=== PATIENT | male | born 1980 | race Caucasian/White ===

== ENCOUNTER 2019-11-27 16:18 | Emergency (ER) | payer MEDICAID, SELFPAY ==
[2019-11-27 16:25] VITALS: BP 163/94; PULSE 98; RESP 20; TEMP 36.7; O2SAT 96
--- NOTE | 2019-11-27 16:30 | DI.RAD_ITS ---
EXAM: XR HAND RT COMPLETE CLINICAL HISTORY: thumb, index pain after injury TECHNIQUE: 2D digital imaging was performed. COMPARISON: No exams were available for comparison FINDINGS: There is lateral subluxation of the 1st metacarpal with respect to the trapezium. No fracture is yuni ntified. There is negative ulnar variance. There are mild degenerative changes of interphalangeal j oint of thumb. Smoothly marginated bony densities noted on the lateral view dorsally consistent with old trauma. IMPRESSION: Lateral subluxation of the 1st metacarpal consistent with ligamentous injury.
--- NOTE | 2019-11-27 16:40 | ED.GENADUL_ITS ---
Discharge Plan Disposition Patient Disposition: HOME Condition: Stable Discharge Details Clinical Impression: CMC (carpometacarpal joint) sprains Primary Care Provider: None,None ED Provider: Donn Naranjo Home Meds and New Rx's Prescriptions: Continued trazodone 100 MG tablet 200 - 300 mg PO HS PRNRF: 0 sertraline 100 MG tablet 150 mg PO DAILY RF: 0 Vyvanse 30 MG capsule 50 mg PO DAILY RF: 0 ibuprofen 800 MG tablet 800 mg PO Q8H PRN (Reason: Pain) Qty: 15 RF: 0 acetaminophen 500 mg Tablet 1,000 mg PO PRN PRNRF: 0 Discharge Instructions Additional Instructions: We will place you on the orthopedic follow-up list for evaluation of mild subluxation of the first carpal metacarpal joint. Call the office at [phone] for an appointment time. May remove splint for bathing, otherwise leave the splint with thumb spica in place until seen by orthopedics. Apply ice to area to reduce discomfort. May use Tylenol and/or ibuprofen as needed for pain. Return to the ER if you develop cold/blue/numbness of the fingertips or any other acute concerns. Medical Decision Making 39-year-old male presents with right hand pain after the hand was caught in b etween the sides of an extension ladder and a rung. It was quickly removed. Patient took [id number] analgesic, placed ice and presented to the ER. X-ray obtained which does not reveal underlying bony fracture. There is question of right first carpometacarpal joint subluxation. Patient was placed in thumb spica, I will refer him to orthopedic clinic in follow-up. He understands outpatient care and follow-up. HPI General Mode of arrival: ambulatory . Date/Time Provider Initiated Documentation: 11/27/19 16:20 . Limitations to Documentation: no limitations . Information obtained by: patient . History of Present Illness 39 year old M presents to the emergency department with the chief complaint of Right hand injury, described as moderate, Quality is described as dull and constant, and is localized to the right and upper extremity. Patient reports no radiation. Patient started experiencing this hour(s) and it has been constant. No relieving factors improve symptom(s), No exacerbating factors reported . Patient notes denies weakness. Patient did receive the following treatments prior to arrival, NSAID Related Data Home Medications Medication Instructions Recorded Confirmed Vyvanse 50 mg PO DAILY 07/31/13 11/27/19 sertraline 150 mg PO DAILY 07/31/13 11/27/19 trazodone 200 - 300 mg PO HS PRN 07/31/13 11/27/19 ibuprofen 800 mg PO Q8H PRN #15 tablet 03/24/17 11/27/19 acetaminophen 1,000 mg PO PRN PRN 11/27/19 11/27/19 Previous Rx's Medication Instructions Recorded ibuprofen 800 mg PO Q8H PRN #15 tablet 03/24/17 Allergies Allergy/AdvReac Type Severity Reaction Status Date / Time No Known Allergies Allergy Unverified 03/26/17 07:47 General Stated Complaint: Orthopedic TREVER: 4 Review of Systems Narrative: No motor weakness. Pain primarily over the thumb and index. No other injury. [facility] Social History Smoking/Tobacco Use Status: Current every day Tobacco Type: cigarettes Alcohol Intake: never Drug use: Never Substance use type: does not use Do you feel safe at home: Yes Do you feel safe in your relationship?: Yes Exam Narrative Exam Narrative: GEN: awake, alert, oriented 3. Pleasant, well groomed, interactive. HEAD: Normocephalic, atraumatic CHEST/RESP: No respiratory distress EXT: Full ROM, tender overlying proximal thumb -R on the dorsum as well as overlying first metacarpal -R on the dorsum. Patient able to perform all cardinal movements, sensation is intact, capillary refill less than 2 seconds. Neuro: Grossly normal neurologic exam, conversant, interactive. Psych: Speech fluent, thoughts congruent, affect normal Course Vital Signs Vital signs: Vital Signs Temperature 36.7 C 11/27/19 16:25 Pulse 98 H 11/27/19 16:25 Respiratory Rate 11/27/19 16:25 Blood Pressure 163/94 H 11/27/19 16:25 Pulse Oximetry 96 11/27/19 16:25 Temperature 36.7 C 11/27/19 16:25 Temperature Source Skin 11/27/19 16:25 Pulse 98 H 11/27/19 16:25 Respiratory Rate 20 11/27/19 16:25 Respiratory Effort Non-Labored 11/27/19 16:28 Blood Pressure 163/94 H 11/27/19 16:25 Blood Pressure Position Sitting 11/27/19 16:25 Pulse Oximetry 96 11/27/19 16:25 Oxygen Delivery Method Room Air 11/27/19 16:25 Oxygen Flow Rate 0 11/27/19 16:25 Pain Level 8 11/27/19 16:25
--- NOTE | 2019-11-27 17:03 | DI.VRAD_ITS ---
PROCEDURE INFORMATION: Exam: XR Right Hand Exam date and time: 11/27/2019 4:45 PM Age: 39 years old Clinical indication: Other: Thumb, index pain after injury, ; additional info: Pain in RT ip joint, caught in ladder upon fall TECHNIQUE: Imaging protocol: XR Right hand. Views: 3 or more views. COMPARISON: No relevant prior studies available. FINDINGS: Bones/joints: There is a negative ulnar variance. The lunate bone is normal There is a mild subluxation at the 1st carpal metacarpal joint No acute fractures . Soft tissues: Normal. IMPRESSION: 1. The 1st carpal metacarpal joint subluxation. 2. No acute fracture. 3. A negative ulnar variance. The lunate is normal. Dictated and Authenticated by: Sharad Cardoza MD. Ordering:VITALIY Pop MD
== END 2019-11-27 17:28 | disposition home or self-care (01) ==
PROVIDERS: Emergency Provider Emergency Medicine
DX: S67.01XA Crushing injury of right thumb, initial encounter (principal); S63.641A Sprain of metacarpophalangeal joint of right thumb, initial encounter; W23.0XXA Caught, crushed, jammed, or pinched between moving objects, initial encounter
CPT/HCPCS: 99283; 73130; L3807

== ENCOUNTER 2020-07-10 12:59 | Emergency (ER) | payer MEDICAID, SELFPAY ==
[2020-07-10 13:04] VITALS: BP 155/96; PULSE 98; RESP 16; TEMP 36.8; O2SAT 99
--- NOTE | 2020-07-10 13:15 | DI.RAD_ITS ---
Exam(s) XR TOE RT GREAT EXAM: XR TOE RT GREAT CLINICAL HISTORY: pain, swelling, minor trauma, prior remote sx TECHNIQUE: COMPARISON: CR RIGHT FOOT LIMITED from 04/14/2013 FINDINGS: Three views were obtained. There is deformity of the head of the proximal phalanx of the great toe, no change from prior radiographs April 2013. There is no evidence of acute fracture or dislocatio n. IMPRESSION: RADIATION DOSE DELIVERED: Total DLP
--- NOTE | 2020-07-10 13:19 | ED.GENADUL_ITS ---
Discharge Plan Disposition Patient Disposition: HOME Condition: Stable Discharge Details Clinical Impression: Cellulitis of great toe, right Primary Care Provider: None,None ED Provider: Gold Saavedra Home Meds and New Rx's Prescriptions: New cephalexin 500 mg tablet 500 mg PO QID Qty: 27 RF: 0 Continued trazodone 100 MG tablet 200 - 300 mg PO HS PRNRF: 0 sertraline 100 MG tablet 150 mg PO DAILY RF: 0 Vyvanse 30 MG capsule 50 mg PO DAILY RF: 0 ibuprofen 800 MG tablet 800 mg PO Q8H PRN (Reason: Pain) Qty: 15 RF: 0 acetaminophen 500 mg Tablet 1,000 mg PO PRN PRNRF: 0 Discharge Instructions Instructions: Cellulitis (ED) Additional Instructions: Please follow-up with Dr. Wright on . Call today to schedule time of appointment. Please take antibiotic as prescribed Please take ibuprofen over the counter. Take 600mg by mouth every 6 hours as needed for pain. Please contact your primary care physician to arrange follow-up. Return to the ER for any worsening or new concerning symptoms. Stand Alone Forms: Work Release Referrals: Guy Wright DPM [[facility] STAFF PHYSICIAN] - Discharge Data Discharge Date/Time-TO BE ENTERED AT DEPARTURE: 07/10/20 14:32 Medical Decision Making 40-year-old male has history of remote reconstructive surgery to his right great toe here 2 days after stubbing his right great toe with pain, erythema and tenderness of the right great toe. Concern for likely cellulitis. Will initiate treatment with Keflex. X-ray of the toe was reviewed and interpreted by radiology: There is deformity of the head of the proximal phalanx of the great toe, no change from prior radiographs April 2013. There is no evidence of acute fracture or dislocation. Considered initial onset gouty arthritis. Patient does not have history of alcohol use. Will continue keflex, provide orthopedic postoperative shoe for comfort and support, and refer to podiatry for close followup reassess. I called and spoke with Dr. Wright, hospital tray service worker, discussed ED presentation and course, he agrees with treatment plan and will see the patient in follow-up in 2 days. HPI General Mode of arrival: ambulatory . Date/Time Provider Initiated Documentation: 07/10/20 13:17 . Limitations to Documentation: no limitations . Information obtained by: patient . HPI Narrative: 40-year-old male presents with chief complaint of right great toe pain. Patient notes 2 days he stubbed his toe, states he caught his toenail on coffee table. Pain is moderate and worse with ambulation and on palpation. He has associated swelling and redness of the toe. He has no associated fever. No other injury. Patient does note remote history 20+ years ago of having reconstructive surgery to his great toe. He notes chronic deformity of the toe. Related Data Home Medications Medication Instructions Recorded Confirmed Vyvanse 50 mg PO DAILY 07/31/13 07/10/20 sertraline 150 mg PO DAILY 07/31/13 07/10/20 trazodone 200 - 300 mg PO HS PRN 07/31/13 07/10/20 ibuprofen 800 mg PO Q8H PRN #15 tab 03/24/17 07/10/20 acetaminophen 1,000 mg PO PRN PRN 11/27/19 07/10/20 cephalexin 500 mg PO QID #27 tab 07/10/20 Previous Rx's Medication Instructions Recorded ibuprofen 800 mg PO Q8H PRN #15 tab 03/24/17 cephalexin 500 mg PO QID #27 tab 07/10/20 Allergies Allergy/AdvReac Type Severity Reaction Status Date / Time clindamycin Allergy Severe Anaphylaxis Unverified 07/10/20 14:20 General Stated Complaint: Orthopedic TREVER: 4 Review of Systems Constitutional Constitutional: Denies fever(s) Musculoskeletal Musculoskeletal: Reports as per [facility] Medical History Smoker Social History Smoking/Tobacco Use Status: Current every day Tobacco Type: cigarettes Smoking risk assessment performed?: Yes Alcohol Intake: never Drug use: Never Substance use type: does not use Do you feel safe at home: Yes Do you feel safe in your relationship?: Yes Exam Const General: cooperative Nutritional Appearance: average body habitus Orientation: alert Cardio Rate: regular rate Rhythm: regular rhythm Pulses: dorsalis pedis present on the right 2+ Extrem Right lower extremity: foot (Great toe with swelling, erythema and tenderness. No fluctuance. ) Details: tendon exam Details: active flexion normal; no crepitus Course Vital Signs Vital signs: Vital Signs Temperature 36.8 C 07/10/20 13:04 Pulse 98 H 07/10/20 13:04 Respiratory Rate 16 07/10/20 13:04 Blood Pressure 155/96 H 07/10/20 13:04 Pulse Oximetry 99 07/10/20 13:04 Temperature 36.8 C 07/10/20 13:04 Temperature Source Skin 07/10/20 13:04 Pulse 98 H 07/10/20 13:04 Respiratory Rate 16 07/10/20 13:04 Respiratory Effort Non-Labored 07/10/20 13:04 Blood Pressure 155/96 H 07/10/20 13:04 Blood Pressure Position Sitting 07/10/20 13:04 Pulse Oximetry 99 07/10/20 13:04 Oxygen Delivery Method Room Air 07/10/20 13:04 Oxygen Flow Rate 0 07/10/20 13:04 Pain Level 9 07/10/20 13:04
[2020-07-10] MEDS: Cephalexin 500 MG CAP PO (14:25)
== END 2020-07-10 14:32 | disposition home or self-care (01) ==
PROVIDERS: Emergency Provider Student in an Organized Health Care Education/Training Program
DX: L03.031 Cellulitis of right toe (principal)
CPT/HCPCS: 36416; 82962; 99283; 73660; 99284

== ENCOUNTER 2021-04-25 14:13 | Emergency (ER) | payer OTHER, MEDICAID, SELFPAY ==
[2021-04-25 14:21] VITALS: BP 145/95; PULSE 77; RESP 16; TEMP 36.9; O2SAT 100
--- NOTE | 2021-04-25 14:36 | ED.GENADUL_ITS ---
Discharge Plan Disposition Patient Disposition: HOME Condition: Good Discharge Details Clinical Impression: COVID-19 Primary Care Provider: None,None ED Provider: Jessica Drew Home Meds and New Rx's Prescriptions: Continued trazodone 100 MG tablet 200 - 300 mg PO HS PRN0RF sertraline 100 MG tablet 150 mg PO DAILY 0RF Vyvanse 30 MG capsule 50 mg PO DAILY 0RF ibuprofen 800 MG tablet 800 mg PO Q8H PRN (Reason: Pain) Qty: 15 0RF acetaminophen 500 mg Tablet 1,000 mg PO PRN PRN0RF Discharge Instructions Instructions: Viral Syndrome (ED) Additional Instructions: Work on smoking cessation You may return to work on Thursday as long as you are fever free and symptomatically improved supplied you with a work note for today and tomorrow. Return earlier with new or worsening complaints Stand Alone Forms: Work Release Discharge Data Discharge Date/Time-TO BE ENTERED AT DEPARTURE: 04/25/21 14:52 Medical Decision Making Patient appears well, her he has not hypoxic and there is no tachypnea Relates the patient doesn't have any significant complaints and is otherwise feeling improvement but does not feel so improved to return to work Work note supplied Patient discharged home in stable condition with stable vitals Return precautions reviewed and patient expressed understanding Medical Records Medical records reviewed: Yes I reviewed the patient's medical records. Lab Data Lab results reviewed: Yes I reviewed the patient's lab results. HPI General Date/Time Provider Initiated Documentation: 04/25/21 14:23 . HPI Narrative: This 41-year-old gentleman presents for COVID-19 diagnosis approximately 1 week ago. He returned to work 2 days ago but has been having difficulty working with the mask on secondary illness. He denies any current chest pain or shortness of breath. He denies any weakness or dizziness. He states he simply needs a work note but he may return on Thursday for several more days for symptoms to improve. He states overall he is feeling symptomatically improved. Denies any calf pain or swelling. Related Data Home Medications Medication Instructions Recorded Confirmed lisdexamfetamine 30 mg capsule 50 mg PO DAILY 07/31/13 04/25/21 (Vyvanse) sertraline 100 mg tablet 150 mg PO DAILY 07/31/13 04/25/21 trazodone 100 mg tablet 200 - 300 mg PO HS PRN 07/31/13 04/25/21 ibuprofen 800 mg tablet 800 mg PO Q8H PRN #15 tab 03/24/17 04/25/21 acetaminophen 500 mg tablet 1,000 mg PO PRN PRN 11/27/19 04/25/21 Previous Rx's Medication Instructions Recorded ibuprofen 800 mg tablet 800 mg PO Q8H PRN #15 tab 03/24/17 Allergies Allergy/AdvReac Type Severity Reaction Status Date / Time clindamycin Allergy Severe Anaphylaxis Unverified 04/25/21 14:26 General Stated Complaint: RespSymp TREVER: 4 Review of Systems Narrative: Review of systems negative x7 aside from where indicated in HPI PFSH All Active Problems Cellulitis of great toe, right (Acute) COVID-19 (Acute) Smoker (Acute) Social History Smoking/Tobacco Use Status: Current every day Tobacco Type: cigarettes Smoking risk assessment performed?: Yes Alcohol Intake: never Drug use: Never Substance use type: does not use Do you feel safe at home: Yes Do you feel safe in your relationship?: Yes Exam Const General: cooperative, comfortable and no acute distress HENMT Head: normal to inspection Eyes Sclera: sclerae normal Resp Effort & Inspection: normal respiratory effort Cardio Rate: regular rate Skin General skin exam: no rashes or lesions noted Neuro General: patient alert Course Vital Signs Vital signs: Vital Signs Temperature 36.9 C 04/25/21 14:21 Pulse 77 04/25/21 14:21 Respiratory Rate 16 04/25/21 14:21 Blood Pressure 145/95 H 04/25/21 14:21 Pulse Oximetry 100 04/25/21 14:21 Temperature 36.9 C 04/25/21 14:21 Temperature Source Skin 04/25/21 14:21 Pulse 77 04/25/21 14:21 Respiratory Rate 16 04/25/21 14:21 Respiratory Effort 04/25/21 14:28 Respiratory Depth Normal 04/25/21 14:28 Blood Pressure 145/95 H 04/25/21 14:21 Blood Pressure Position Sitting 04/25/21 14:21 Pulse Oximetry 100 04/25/21 14:21 Oxygen Delivery Method Room Air 04/25/21 14:21 Oxygen Flow Rate 0 04/25/21 14:21 Pain Level 0 04/25/21 14:21
== END 2021-04-25 14:52 | disposition home or self-care (01) ==
PROVIDERS: Emergency Provider Physician Assistant
DX: U07.1 COVID-19 (principal)
CPT/HCPCS: 99281; 99282

== ENCOUNTER 2021-05-20 18:55 | Emergency (ER) | payer OTHER, MEDICAID, SELFPAY ==
[2021-05-20 19:00] VITALS: BP 158/104; PULSE 107; RESP 18; TEMP 36.3; O2SAT 99
--- NOTE | 2021-05-20 19:09 | ED.GENADUL_ITS ---
Discharge Plan Disposition Patient Disposition: HOME Condition: Improving Discharge Details Clinical Impression: Hordeolum of left eye Primary Care Provider: None,None ED Provider: Donn Naranjo Home Meds and New Rx's Prescriptions: Continued trazodone 100 MG tablet 200 - 300 mg PO HS PRN0RF sertraline 100 MG tablet 150 mg PO DAILY 0RF Vyvanse 30 MG capsule 50 mg PO DAILY 0RF ibuprofen 800 MG tablet 800 mg PO Q8H PRN (Reason: Pain) Qty: 15 0RF acetaminophen 500 mg Tablet 1,000 mg PO PRN PRN0RF Discharge Instructions Instructions: Clement (ED) Additional Instructions: Erythromycin ointment 3 times daily for the next 4 to 5 days time. Apply warm compress to area to reduce discomfort 4-5 times per day Return if you have enlarging area of discomfort, develop redness around the eye, or any other concerns. Medical Decision Making This is a 41-year-old male presents from home with 1 day of left upper eyelid irritation and question small white spot. He has normal vision, no pain, no tearing, no crusting of the eyelids. There is a small hordeolum present left upper eye lid. Will treat with Pamela Meissen ointment and warm pack. Patient is stable and appropriate discharge to home. HPI General Date/Time Provider Initiated Documentation: 05/20/21 18:56 . History of Present Illness 41 year old M presents to the emergency department with the chief complaint of Left eye upper lid discomfort, described as mild, Quality is described as dull, and is localized to the eyes and left. Patient reports no radiation. Patient started experiencing this hour(s) and it has been constant. improves with No relieving factors improve symptom(s), No exacerbating factors reported . Patient notes denies fever/chills. Patient did receive the following treatments prior to arrival, none Related Data Home Medications Medication Instructions Recorded Confirmed lisdexamfetamine 30 mg capsule 50 mg PO DAILY 07/31/13 05/20/21 (Vyvanse) sertraline 100 mg tablet 150 mg PO DAILY 07/31/13 05/20/21 trazodone 100 mg tablet 200 - 300 mg PO HS PRN 07/31/13 05/20/21 ibuprofen 800 mg tablet 800 mg PO Q8H PRN #15 tab 03/24/17 05/20/21 acetaminophen 500 mg tablet 1,000 mg PO PRN PRN 11/27/19 05/20/21 Previous Rx's Medication Instructions Recorded ibuprofen 800 mg tablet 800 mg PO Q8H PRN #15 tab 03/24/17 Allergies Allergy/AdvReac Type Severity Reaction Status Date / Time clindamycin Allergy Severe Anaphylaxis Unverified 05/20/21 19:02 General Stated Complaint: EyeProblem TREVER: 4 Review of Systems Narrative: No change to vision, no pain. 4 systems were reviewed and otherwise negative. PFSH All Active Problems Cellulitis of great toe, right (Acute) COVID-19 (Acute) Hordeolum of left eye (Acute) Smoker (Acute) Social History Smoking/Tobacco Use Status: Current every day Tobacco Type: cigarettes Smoking risk assessment performed?: Yes Alcohol Intake: never Drug use: Never Substance use type: does not use Do you feel safe at home: Yes Do you feel safe in your relationship?: Yes Exam Narrative Exam Narrative: GEN: awake, alert, oriented 3. Pleasant, well groomed, interactive. HEAD: Normocephalic, atraumatic ENT: Mucous membranes moist, oropharynx unremarkable, External ear exam unremarkable EYES: PERRL, EOMI, left upper eyelid with small hordeolum NECK: Full ROM, no LORENE, no menigismus CHEST/RESP: No respiratory distress Neuro: Grossly normal neurologic exam, conversant, interactive. Psych: Speech fluent, thoughts congruent, affect normal Course Vital Signs Vital signs: Vital Signs Temperature 36.3 C L 05/20/21 19:00 Pulse 107 H 05/20/21 19:00 Respiratory Rate 18 05/20/21 19:00 Blood Pressure 158/104 H 05/20/21 19:00 Pulse Oximetry 99 05/20/21 19:00 Temperature 36.3 C L 05/20/21 19:00 Pulse 107 H 05/20/21 19:00 Respiratory Rate 18 05/20/21 19:00 Respiratory Effort Non-Labored 05/20/21 19:03 Blood Pressure 158/104 H 05/20/21 19:00 Pulse Oximetry 99 05/20/21 19:00 Oxygen Delivery Method Room Air 05/20/21 19:00 Oxygen Flow Rate 0 05/20/21 19:00 Pain Level 0 05/20/21 19:00
[2021-05-20] MEDS: Erythromycin Ophth Oint 3.5 GM TUBE OS (19:17)
[2021-05-20 19:18] VITALS: BP 160/90; PULSE 109; RESP 16; O2SAT 98
== END 2021-05-20 19:22 | disposition home or self-care (01) ==
PROVIDERS: Emergency Provider Emergency Medicine
DX: H00.014 Hordeolum externum left upper eyelid (principal)
CPT/HCPCS: 99283

== ENCOUNTER 2021-07-01 10:55 | Emergency (ER) | payer OTHER, MEDICAID, SELFPAY ==
[2021-07-01 11:02] VITALS: BP 148/109; PULSE 111; RESP 16; TEMP 37; O2SAT 100
--- NOTE | 2021-07-01 11:12 | ED.GENADUL_ITS ---
Discharge Plan Disposition Patient Disposition: HOME Condition: Good Discharge Details Clinical Impression: COVID-19 Primary Care Provider: None,None ED Provider: Rebeca Tello Home Meds and New Rx's Prescriptions: Continued trazodone 100 MG tablet 200 - 300 mg PO HS PRN0RF sertraline 100 MG tablet 150 mg PO DAILY 0RF Vyvanse 30 MG capsule 50 mg PO DAILY 0RF ibuprofen 800 MG tablet 800 mg PO Q8H PRN (Reason: Pain) Qty: 15 0RF acetaminophen 500 mg Tablet 1,000 mg PO PRN PRN0RF Discharge Instructions Instructions: Viral Syndrome (ED) Additional Instructions: You had a positive home COVID test today. As we discussed, she has not had a negative since your recent COVID diagnosis, this could be a false positive. I would like for you to continue to quarantine until testing from here has returned or you have had a negative test. Please encourage hydration. Can use Tylenol and ibuprofen as needed for discomfort. Please consider smoking cessation. I have asked our care management team to call you to help establish local primary care. If you develop shortness of breath, difficulty breathing or chest pain or other new/worsening symptoms please seek care urgently once again. Stand Alone Forms: Work Release Discharge Data Discharge Date/Time-TO BE ENTERED AT DEPARTURE: 07/01/21 11:27 Medical Decision Making Patient is a pleasant 41-year-old male presenting today with chief complaint of being COVID-19 positive and requesting a work note. Patient had documented COVID-19 infection about 2 months ago. He states that his symptoms resolved. Did not have a documented negative test. States that 4 days ago he began having symptoms of body aches and slight cough. Mild sore throat. No fevers or chills. No shortness of breath or chest pain. No GI upset. He states that he retested himself and was found to be COVID-positive once again. Patient is fully vaccinated for COVID-19. On exam, patient appears nontoxic toxic. No acute abnormalities noted. The patient does not have a documented negative test, I did also question if this could be a false positive associated with his recent COVID diagnosis. We will complete a send out test as well. The meantime, patient will continue to quarantine. Encourage hydration. Discussed symptomatic management. Work note given to help prevent spread of COVID-19. I did encourage that he may have a primary care provider. I have asked her care management team to assist in establishing local primary care. Return precautions were discussed. All of his questions and concerns were addressed and he is in agreement with plan. HPI General Date/Time Provider Initiated Documentation: 07/01/21 10:55 . Limitations to Documentation: no limitations . Information obtained by: patient, RN notes reviewed and old records reviewed . History of Present Illness 41 year old M presents to the emergency department with the chief complaint of Needs work note after being COVID positive at home, described as mild and similar to prior episodes, Quality is described as aching (diffuse joint aches), Patient reports no radiation. Patient started experiencing this day(s) (3) and it has been constant. improves with No relieving factors improve symptom(s), No exacerbating factors reported . Patient notes cough; denies chest pain, fever/chills, loss of appetite, nausea/vomiting, rash and shortness of breath. Patient did receive the following treatments prior to arrival, none Related Data Home Medications Medication Instructions Recorded Confirmed lisdexamfetamine 30 mg capsule 50 mg PO DAILY 07/31/13 05/20/21 (Vyvanse) sertraline 100 mg tablet 150 mg PO DAILY 07/31/13 05/20/21 trazodone 100 mg tablet 200 - 300 mg PO HS PRN 07/31/13 05/20/21 ibuprofen 800 mg tablet 800 mg PO Q8H PRN #15 tab 03/24/17 05/20/21 acetaminophen 500 mg tablet 1,000 mg PO PRN PRN 11/27/19 05/20/21 Previous Rx's Medication Instructions Recorded ibuprofen 800 mg tablet 800 mg PO Q8H PRN #15 tab 03/24/17 Allergies Allergy/AdvReac Type Severity Reaction Status Date / Time clindamycin Allergy Severe Anaphylaxis Unverified 05/20/21 19:02 General Stated Complaint: GenMedical TREVER: 4 Review of Systems Constitutional Constitutional: Reports as per HPI Eyes Eyes: Reports as per HPI ENT Ears, Nose, Mouth, and Throat: Reports as per HPI Cardiovascular Cardiovascular: Reports as per HPI, Denies chest pain and Denies dyspnea Respiratory Respiratory: Reports as per HPI and Denies dyspnea Gastrointestinal Gastrointestinal: Reports as per HPI, Denies abdominal pain, Denies nausea and Denies vomiting Integumentary/Breasts Skin/Breast: Reports as per HPI Neurologic Neurologic: Reports as per HPI PFSH All Active Problems Cellulitis of great toe, right (Acute) COVID-19 (Acute) Smoker (Acute) Social History Smoking/Tobacco Use Status: Current every day Tobacco Type: cigarettes Smoking risk assessment performed?: Yes Alcohol Intake: never Drug use: Never Substance use type: does not use Do you feel safe at home: Yes Do you feel safe in your relationship?: Yes Exam Const General: cooperative, healthy appearing, comfortable, no acute distress, well developed and well groomed Nutritional Appearance: average body habitus and well nourished Orientation: alert and awake HENOH Head: normal to inspection, normocephalic and atraumatic Ears: hearing grossly normal bilaterally, external ears normal and TM's normal bilaterally General nose exam: external nose normal and nares normal Face and sinus: normal facial exam, sinuses nontender and face symmetric Mouth: oral mucosae normal, lip normal, tongue normal, oropharynx normal and moist mucous membranes Teeth and gingiva: dentition normal Throat: posterior oropharynx normal, tonsils normal and uvula midline Eyes General: appearance normal, both eyes and all related structures Neck Neck: normal visual inspection, full ROM, no lymphadenopathy and no meningeal signs Resp Effort & Inspection: normal respiratory effort, able to speak in complete sentences and no respiratory distress Auscultation: clear to auscultation bilaterally, no rales, no rhonchi and no wheezes Cardio Rate: regular rate Rhythm: regular rhythm Heart Sounds: S1 normal and S2 normal Skin General skin exam: no rashes or lesions noted Neuro General: patient alert and patient awake Cognition: normal cognition Speech: speech normal Gait: normal gait Psych Appearance: grossly normal and well kempt Mental Status: mental status grossly normal Speech and Movement: speech and movement normal Course Vital Signs Vital signs: Vital Signs Temperature 37 C 07/01/21 11:02 Pulse 111 H 07/01/21 11:02 Respiratory Rate 16 07/01/21 11:02 Blood Pressure 148/109 H 07/01/21 11:02 Pulse Oximetry 100 07/01/21 11:02 Temperature 37 C 07/01/21 11:02 Temperature Source Tympanic 07/01/21 11:02 Pulse 111 H 07/01/21 11:02 Respiratory Rate 16 07/01/21 11:02 Respiratory Effort Non-Labored 07/01/21 11:11 Respiratory Depth Normal 07/01/21 11:11 Respiratory Pattern Normal 07/01/21 11:11 Blood Pressure 148/109 H 07/01/21 11:02 Pulse Oximetry 100 07/01/21 11:02 Oxygen Delivery Method Room Air 07/01/21 11:02 Oxygen Flow Rate 0 07/01/21 11:02
--- NOTE | 2021-07-01 11:52 | NUR.NOTE ---
Nursing Note: Referral given to Care Management, pt needs PCP, establish care, COVID +, with routine follow up. Lynne Ferrell
[2021-07-02 11:31] LABS: COVID-19 RT-PCR UVMMC Result Negative (Negative)
--- NOTE | 2021-07-02 13:44 | NUR.NOTE ---
LEFT A MESSAGE FOR THE Patient to return my call about his covid results
--- NOTE | 2021-07-02 14:04 | NUR.NOTE ---
gave covid negative results to the patient
--- NOTE | 2021-07-05 14:34 | CMACTNOTE_ITS ---
- If Service Date Differs Date of service: 07/05/21 Time of Service: 14:34 Care Management Activity Note Azar is seen in the ED for body aches and slight cough. At the request of ED provider, [place] coordinates a referral to Marcos Reynolds MD, of [facility], on-call provider, to assist Azar in obtaining a follow up appointment and in establishing care with a PCP. Azar has [employer] and Medicaid for insurance.
== END 2021-07-01 11:27 | disposition home or self-care (01) ==
PROVIDERS: Emergency Provider Physician Assistant
DX: U07.1 COVID-19 (principal); F17.210 Nicotine dependence, cigarettes, uncomplicated
CPT/HCPCS: 99282; U0003

== ENCOUNTER 2024-02-23 07:40 | Emergency (ER) | payer OTHER, MEDICAID, SELFPAY ==
[2024-02-23] VITALS (62 sets, daily range): BP systolic 107–145; BP diastolic 73–106; PULSE 77–115; RESP 12–41; TEMP 36.4–36.8; O2SAT 94–98
--- NOTE | 2024-02-23 07:30 | RT.EKG_ITS ---
APPROVED REPORT Exam: Resting ECG Reason for Exam: SOB Patient Location: E HR:103 bpm ECG Measurements Heart Rate 103 AXIS MN 155 P 33 QRSd 88 QRS -11 QT 359 T 134 QTc 470 Conclusion Sinus tachycardia, rate 103 Inverted T waves I, aVL, V6 No STEMI No priors available for comparison
--- NOTE | 2024-02-23 08:00 | DI.CT_ITS ---
Exam(s) CT CHEST PE CTA EXAM: CT CHEST PE CTA CLINICAL HISTORY: Tachycardia, dyspnea, recent COVID. TECHNIQUE: Imaging Protocol: Axial CT angiography was performed with multi-slice acquisition and mu lti-planar reconstructions as well as axial, coronal and sagittal MIP reconstructions. Computer aided detection (CAD) was utilized. CONTRAST MATERIAL: Intravenous: Omnipaque 350 Contrast volume:85 ml COMPARISON: No exams were available for comparison FINDINGS: Pulmonary Arteries: No evidence of filling defect to suggest pulmonary emboli. Mediastinum and [place]: No dominant adenopathy or fluid collection. Pulmonary parenchyma: Suboptimal evaluation due to expiratory changes. Interlobular arm septal thick ening consistent with pulmonary edema. Few patchy areas are noted which could represent alveolar eli ma however infection is not excluded. Pleura: No pneumothorax. Small bilateral pleural effusions. Heart: The heart is moderately dilated, left atrium and left ventricle. Calcifications seen at aorti c valve.. No coronary artery calcifications are seen. Aorta: Thoracic aorta non-dilated. No dissection. Upper abdomen: No acute findings. Bones: Degenerative changes, somewhat disproportionate for the patient's age. Tubes, Catheters, and Lines: None Soft tissues: Unremarkable. IMPRESSION: No evidence of pulmonary embolism. Enlarged heart, small bilateral pleural effusions and interlobular septal thickening consistent with CHF. RADIATION DOSE DELIVERED: 136.15mGy.cm Total DLP DATA REPOSITORY: All CT scans at this facility are submitted to the National Radiology Data Registry (NRDR) Dose Index Registry (DIR) with the [employer] (ACR). RADIATION OPTIMIZATION: All CT scans at this facility use at least one of these dose optimization te chniques: automated exposure control; mA and/or kV adjustment per patient size (includes targeted exa ms where dose is matched to clinical indication); or iterative reconstruction.
--- NOTE | 2024-02-23 08:02 | ED.GENADUL_ITS ---
Discharge Plan Discharge Details Chief Complaint: RespSymp Clinical Impression: CHF (congestive heart failure), Smoker, Myocarditis due to COVID-19 virus Primary Care Provider: None,None ED Provider: Piper Velasquez Home Meds and New Rx's Prescriptions: No Action trazodone 100 MG tablet 200 - 300 mg PO HS PRN sertraline 100 MG tablet 150 mg PO DAILY lisdexamfetamine [Vyvanse] 30 MG capsule 50 mg PO DAILY ibuprofen 800 MG tablet 800 mg PO Q8H PRN (Reason: Pain) Qty: 15 0RF acetaminophen 500 mg Tablet 1,000 mg PO PRN PRN HPI General Mode of arrival: ambulatory . Date/Time Provider Initiated Documentation: 02/23/24 07:44 . Limitations to Documentation: no limitations . Information obtained by: patient, family and old records reviewed . 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 The patient reports that about a week ago he had a positive home COVID-19 test and was experiencing bodyaches, cough with phlegm production. He states that his symptoms improved, but a few days ago he noticed that his work of breathing had increased significantly. He reports ongoing cough, decreased exercise tolerance, and a sensation that he cannot take a full deep breath. He was prompted to seek care due to the worsening of his breathing. He reports that he has not had any hemoptysis, states that his body aches and fever have resolved, and he is not experiencing any chest pain. He reports that he has not experienced a blood clot in the past, did not receive COVID or influenza vaccines this year. Has been eating and drinking normally, no changes to bowel or bladder habits. Exam: Gen: Awake and alert, in mild respiratory distress HEENT: Non-icteric sclera Neck: Supple Lungs: Mild tachypnea, lung sounds clear and equal bilaterally CV: Appears well perfused, heart with tachycardic rate but regular rhythm, strong distal pulses Abdomen: Non-distended, soft MSK: Moves 4 extremities without apparent limitation in ROM. No peripheral edema, no unilateral calf tenderness or swelling Skin: Visualized skin without rashes, cyanosis. Neuro: Normal Gait, no obvious focal deficits or facial asymmetry. Speaks in full, clear sentences. Psych: Appropriate for situation. MDM: This is a 43-year-old male patient presenting for evaluation of shortness of breath. My differential includes but is not limited to URI, pneumonia, bronchitis, and certainly consider pulmonary embolism in this tachycardic dyspneic patient without focal lung findings and with a recent diagnosis of COVID-19. I also considered pulmonary edema, pneumoconiosis, restrictive lung disease. No evidence for reactive airway disease exacerbation. Considered ACS including STEMI, NSTEMI, unstable angina, metabolic and electrolyte derangements, anemia, kidney injury. An EKG was obtained and reviewed by myself, which shows T wave inversions in lead I, aVL, and V6. There are no priors available for comparison unfortunately, but no evidence for STEMI on this initial EKG. We had a shared decision-making conversation, and ultimately I believe it is prudent to proceed with CT pulmonary embolism study, as well as laboratory studies to include CBC, CMP, troponin, BNP, INR. I will also repeat the patient viral swab. ED Course: The patient's laboratory studies reveal no leukocytosis, anemia, or thrombocytopenia. INR 1.0. Chemistry panel without significant electrolyte derangements, evidence of kidney dysfunction or liver disease. The patient's troponin is elevated to 94, and his BNP is elevated to 2400. For this reason, I performed a bedside ultrasound as noted below, which shows moderately reduced ejection fraction, B-lines, and is concerning for CHF. CT scan was reviewed by myself, and I discussed the findings with the radiologist. There is no evidence of pulmonary embolism, though the patient does have bilateral small pleural effusions, cardiomegaly, and some evidence of pulmonary edema. The patient's new onset CHF, in the setting of an elevated troponin, is concerning for postviral myocarditis, and I consulted [place] [facility] [place] recommending transfer to their facility for further workup and evaluation. I did provide the patient with a dose of Lasix, 40 mg IV, with excellent urine output and resolution of his tachycardia. Repeat EKG without development of ischemic changes. The patient was excepted by [facility] cardiology for transfer, and at the time that I signed out care of this patient was awaiting bed availability and transfer. He has been hemodynamically improved, is tolerating p.o., and has not required any additional interventions while under my care. Piper Velasquez MD Related Data Home Medications ?Medication ?Instructions ?Recorded ?Confirmed lisdexamfetamine 30 mg capsule 50 mg PO DAILY 07/31/13 02/23/24 (Vyvanse) sertraline 100 mg tablet 150 mg PO DAILY 07/31/13 02/23/24 trazodone 100 mg tablet 200 - 300 mg PO HS PRN 07/31/13 02/23/24 ibuprofen 800 mg tablet 800 mg PO Q8H PRN Pain #15 tabs 03/24/17 02/23/24 acetaminophen 500 mg tablet 1,000 mg PO PRN PRN 11/27/19 02/23/24 Previous Rx's ?Medication ?Instructions ?Recorded ibuprofen 800 mg tablet 800 mg PO Q8H PRN Pain #15 tabs 03/24/17 Allergies Allergy/AdvReac Type Severity Reaction Status Date / Time clindamycin Allergy Severe Anaphylaxis Unverified 02/23/24 07:44 General Stated Complaint: RespSymp TREVER: 3 Course Vital Signs Vital signs: Vital Signs Pulse 115 H 02/23/24 07:45 Respiratory Rate 20 02/23/24 07:45 Blood Pressure 145/74 H 02/23/24 07:45 Pulse Oximetry 97 02/23/24 07:45 Temperature 36.8 C 02/23/24 07:50 Temperature Source Oral 02/23/24 07:50 Pulse 113 H 02/23/24 07:50 Respiratory Rate 18 02/23/24 07:50 Blood Pressure 145/74 H 02/23/24 07:50 Blood Pressure Position Sitting 02/23/24 07:50 Pulse Oximetry 96 02/23/24 07:50 Oxygen Delivery Method Room Air 02/23/24 07:50 Oxygen Flow Rate 0 02/23/24 07:45 Pain Level 7 02/23/24 07:50 Comment BERMUDEZ 02/23/24 07:45 Medical Decision Making Quality:SDOH Health Related Social Needs: No Data to Display PFSH All Active Problems Myocarditis due to COVID-19 virus (Acute) CHF (congestive heart failure) (Chronic) COVID-19 (Acute) Cellulitis of great toe, right (Acute) Smoker (Acute) Social History Smoking/Tobacco Use Status: Current every day Tobacco Type: cigarettes Smoking risk assessment performed?: Yes Alcohol Intake: never Drug use: Never Substance use type: does not use Housing: house Do you feel safe at home: Yes Do you feel safe in your relationship?: Yes POCUS Exam (ED) Limited Cardiac Exam DATE OF EXAM: 02/23/24 TIME OF EXAM: 09:07 PROVIDER THAT PERFORMED THE STUDY: Piper Velasquez IS THIS A REPEAT EXAM DURING THIS ENCOUNTER: no REASON FOR EXAM: Congestive heart failure VISUALIZED STRUCTURES: Four Chambers, Left atrium, Left ventricle, LVOT, Right atrium, Right ventricle, Aortic valve, Mitral valve, Interventricular septum, IVC and Other structure: lungs VIEW OBTAINED: Apical 4-Chamber, Parasternal long-axis, Parasternal short-axis, Subxiphoid and Other (IVC, b/l lung apices) PERTINENT FINDINGS/IMPRESSION: LV dysfunction :moderate and Other b/l B-lines ; No pericardial effusion Exam complete
[2024-02-23 08:15] LABS: Abs Immature Grans 0.02 10^3/uL (0.0-0.06); Absolute Eosinophil Count 0.29 10^3/uL (0.0-0.7); Absolute Lymphocyte Count 1.97 10^3/uL (1.2-3.4); Absolute Monocyte Count 0.57 10^3/uL (0.1-0.8); Absolute Neutrophil Count 5.62 10^3/uL (1.2-6.7); Basophils % 1.2 %; Eosinophils % 3.4 %; HCT 42.6 % (40.0-50.0); HGB 14.6 g/dL (13.5-17.5); Immature Grans % 0.2 %; MCH 31.2 pg (27.0-33.0); MCHC 34.3 % (32.0-36.0); MCV 91 fL (80-95); MPV 10.7 fL (8.0-11.0); Monocytes % 6.7 %; Neutrophils % 65.5 %; Platelet Count 226 10^3/uL (130-400); RBC 4.68 10^6/uL (4.36-5.78); RDW-SD 42.8 fL; WBC 8.57 10^3/uL (4.4-10.8)
[2024-02-23 08:26] LABS: Prothrombin Time 9.9 sec (9.1-11.1)
[2024-02-23] MEDS: Normal Saline - Diluent 50 ML VIAL IJ (08:30)
[2024-02-23] MEDS: Omnipaque 350 MG/ML 500 ML BTL-Imaging package 85 ML IJ (08:37)
[2024-02-23 08:39] LABS: ALT 27 U/L (16-63); AST 23 U/L (15-37); Albumin 3.5 g/dL (3.4-5.0); Alkaline Phosphatase 117 U/L (46-116); BUN 11 mg/dL (7-18); Bilirubin, Total 0.33 mg/dL (0.2-1.0); CREATININE 1.3 mg/dL (0.70-1.30); Calcium 8.6 mg/dL (8.5-10.1); Chloride 108 mmol/L (98-107); Estimated GFR 70.78 (mL/min/1.73m2); Glucose 114 mg/dL (74-106); Magnesium 1.8 mg/dL (1.8-2.4); NT-proBNP 2483 pg/mL (<300); Potassium 3.6 mmol/L (3.5-5.1); Sodium 141 mmol/L (136-145); Total Protein 7.1 g/dL (6.4-8.2)
[2024-02-23 08:40] LABS: Troponin I 94 ng/L (<or=76)
[2024-02-23] MEDS: Furosemide 40 MG/4 ML VIAL IVP (09:12)
[2024-02-23 09:45] LABS: Troponin I 87 ng/L (<or=76)
[2024-02-23 10:12] LABS: TSH (W/Ref FT4) 1.84 uIU/mL (0.36-3.74)
[2024-02-23 11:31] LABS: Troponin I 80 ng/L (<or=76)
--- NOTE | 2024-02-23 12:15 | RT.EKG_ITS ---
APPROVED REPORT Exam: Resting ECG Reason for Exam: repeat Patient Location: E HR:92 bpm ECG Measurements Heart Rate 92 AXIS MS 144 P 19 QRSd 90 QRS -13 QT 377 T 146 QTc 465 Conclusion Sinus rhythm, rate 92 No interval abnormalities No STEMI T wave inversion I, aVL, V6 persists No significant changes from priors
--- NOTE | 2024-02-23 18:10 | ED.PROG_ITS ---
Date of service: 02/23/24 Time of Service: 18:10 Medical Decision Making Became available at [facility], patient was observed here with no declines in the status and actually improved. He was stable upon transfer to [facility]. Quality:[facility] Health Related Social Needs: No Data to Display Discharge Plan Disposition Specific Acute Inpt Facility: [facility] Condition: Serious Discharge Details Chief Complaint: RespSymp Clinical Impression: CHF (congestive heart failure), Smoker, Myocarditis due to COVID-19 virus Primary Care Provider: None,None ED Provider: Cameron Lutz [place] Meds and New Rx's Prescriptions: No Action trazodone 100 MG tablet 200 - 300 mg PO HS PRN sertraline 100 MG tablet 150 mg PO DAILY lisdexamfetamine [Vyvanse] 30 MG capsule 50 mg PO DAILY ibuprofen 800 MG tablet 800 mg PO Q8H PRN (Reason: Pain) Qty: 15 0RF acetaminophen 500 mg Tablet 1,000 mg PO PRN PRN
--- NOTE | 2024-02-23 20:55 | NUR.NOTE ---
This residential mortgage underwriter accompanied pt on transport with [facility] crew departing from [facility] at 181. VSS cardiac monitoring without ectopy and without events. pt denied SOB, Chest pain and chest pressure. [place] [facility] [place] L3 WB at 191. Bed side report given to Latasha WALKER.
== END 2024-02-23 18:21 | disposition short-term general hospital (02) ==
PROVIDERS: Emergency Medicine; Emergency Provider Emergency Medicine
DX: U07.1 COVID-19 (principal); I40.0 Infective myocarditis; I50.9 Heart failure, unspecified; F17.210 Nicotine dependence, cigarettes, uncomplicated
CPT/HCPCS: 00123; 36415; 71275; 80053; 87637; 93005; 93308; 96374; 99285; 83735; 83880; 84443; 84484; 85025; 85610; 93010; J1940

== ENCOUNTER 2024-04-01 10:20 | Outpatient (RCR) | payer OTHER, MEDICAID, SELFPAY ==
--- NOTE | 2024-03-23 11:00 | RT.EKG_ITS ---
APPROVED REPORT Exam: Resting ECG Reason for Exam: baseline Patient Location: O HR:79 bpm ECG Measurements Heart Rate 79 AXIS MI 163 P 62 QRSd 84 QRS 37 QT 355 T 166 QTc 407 Conclusion Sinus rhythm...normal P axis, V-rate 50- 99 Consider right atrial enlargement...P >0.24mV limb lead Abnrm T, consider ischemia, anterolateral lds...T <-0.20mV, I aVL V2-V6
== END 2024-04-01 23:59 | disposition home or self-care (01) ==
LOC: CR 10:20
PROVIDERS: PCP Nurse Practitioner Family; Visit Provider Internal Medicine Cardiovascular Disease
DX: I35.0 Nonrheumatic aortic (valve) stenosis (principal); Z95.2 Presence of prosthetic heart valve; Z51.89 Encounter for other specified aftercare
CPT/HCPCS: S9472

== ENCOUNTER 2024-04-27 08:53 | Outpatient (RCR) | payer OTHER, MEDICAID, SELFPAY | END 2024-04-29 23:59 | disposition home or self-care (01) | LOC: CR 08:53 | PROVIDERS: PCP Nurse Practitioner Family; Visit Provider Internal Medicine Cardiovascular Disease | DX: J96.01 Acute respiratory failure with hypoxia (principal); Z95.5 Presence of coronary angioplasty implant and graft; Z51.89 Encounter for other specified aftercare | CPT/HCPCS: S9472 ==

== ENCOUNTER 2024-05-11 08:59 | Outpatient (RCR) | payer OTHER, MEDICAID, SELFPAY | END 2024-05-30 23:59 | disposition home or self-care (01) | LOC: CR 08:59 | PROVIDERS: PCP Nurse Practitioner Family; Visit Provider Internal Medicine Cardiovascular Disease | DX: J96.01 Acute respiratory failure with hypoxia (principal); I50.9 Heart failure, unspecified; Z95.2 Presence of prosthetic heart valve; Z51.89 Encounter for other specified aftercare | CPT/HCPCS: S9472 ==

== ENCOUNTER 2024-06-20 03:36 | Outpatient (CLI) | payer OTHER, MEDICAID, SELFPAY ==
[2024-06-20 11:48] LABS: Calculated LDL 154 mg/dL (<100); Cholesterol 236 mg/dL (<200); HDL Cholesterol 42 mg/dL (>or=40); Triglyceride 200 mg/dL (<150)
[2024-06-20 11:51] LABS: Hemoglobin A1C 5.5 % (<5.7)
== END 2024-06-20 03:37 | disposition home or self-care (01) ==
LOC: LBO 03:36
PROVIDERS: PCP Nurse Practitioner Family; Visit Provider Nurse Practitioner Family
DX: Z13.220 Encounter for screening for lipoid disorders (principal); Z13.1 Encounter for screening for diabetes mellitus
CPT/HCPCS: 36415; 80061; 83036

== ENCOUNTER 2024-07-24 18:47 | Emergency (ER) | payer OTHER, MEDICAID, SELFPAY ==
[2024-07-24 18:53] VITALS: BP 146/83; PULSE 64; RESP 20; TEMP 36.7; O2SAT 97
[2024-07-24] MEDS: Erythromycin Ophth Oint 3.5 GM TUBE OS (21:05)
[2024-07-24] MEDS: Tetracaine 0.5% 4 ML BTL OP (21:06)
[2024-07-24] MEDS: Fluorescein STRIPS 100/BOX 1 MG OP (21:06)
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
== END 2024-07-24 21:09 | disposition home or self-care (01) ==
PROVIDERS: Emergency Provider Nurse Practitioner Family; PCP Nurse Practitioner Family
DX: S05.02XA Injury of conjunctiva and corneal abrasion without foreign body, left eye, initial encounter (principal); T54.3X1A Toxic effect of corrosive alkalis and alkali-like substances, accidental (unintentional), initial encounter; Z95.2 Presence of prosthetic heart valve; Z79.01 Long term (current) use of anticoagulants; Z79.82 Long term (current) use of aspirin; Z87.891 Personal history of nicotine dependence; Y92.69 Other specified industrial and construction area as the place of occurrence of the external cause; Y99.0 Civilian activity done for income or pay
CPT/HCPCS: 99283

== ENCOUNTER 2024-08-23 20:42 | Emergency (ER) | payer OTHER, MEDICAID, SELFPAY ==
[2024-08-23] VITALS (20 sets, daily range): BP systolic 107–151; BP diastolic 66–87; PULSE 59–76; RESP 11–31; TEMP 36.9; O2SAT 95–100
--- NOTE | 2024-08-23 20:45 | RT.EKG_ITS ---
APPROVED REPORT Exam: Resting ECG Reason for Exam: weakness Patient Location: E HR:61 bpm ECG Measurements Heart Rate 61 AXIS WV 170 P 22 QRSd 84 QRS 3 QT 386 T 108 QTc 388 Conclusion Sinus rhythm [address] specific [address] changes, improved from prior no stemi
[2024-08-23 21:12] LABS: Abs Immature Grans 0.02 10^3/uL (0.0-0.06); Absolute Basophil Count 0.15 10^3/uL (0.0-0.2); Absolute Eosinophil Count 0.49 10^3/uL (0.0-0.7); Absolute Lymphocyte Count 2.87 10^3/uL (1.2-3.4); Absolute Monocyte Count 0.95 10^3/uL (0.1-0.8); Absolute Neutrophil Count 5.53 10^3/uL (1.2-6.7); Basophils % 1.5 %; Eosinophils % 4.9 %; HCT 44.1 % (40.0-50.0); HGB 15.2 g/dL (13.5-17.5); Immature Grans % 0.2 %; Lymphocytes % 28.7 %; MCH 31.4 pg (27.0-33.0); MCHC 34.5 % (32.0-36.0); MCV 91 fL (80-95); MPV 10.6 fL (8.0-11.0); Monocytes % 9.5 %; Neutrophils % 55.2 %; Platelet Count 245 10^3/uL (130-400); RBC 4.84 10^6/uL (4.36-5.78); RDW 13.4 % (11.8-14.1); RDW-SD 45.1 fL; WBC 10.01 10^3/uL (4.4-10.8)
--- NOTE | 2024-08-23 21:18 | W.ED.GENAD ---
Discharge Plan Disposition Patient Disposition: Home Condition: Stable Discharge Details Clinical Impression: Feeling unwell, Elevated INR Primary Care Provider: Rene Higgins ED Provider: Livier Gary Home Meds and New Rx's Prescriptions: No Action potassium chloride 20 mEq tablet extended release 20 meq PO DAILY Jardiance 10 mg tablet 10 mg PO DAILY spironolactone 25 mg tablet 12.5 mg PO DAILY aspirin 81 mg tablet,chewable 81 mg PO DAILY metoprolol succinate 100 mg tablet extended release 24 hr 150 mg PO DAILY furosemide 40 mg tablet 40 mg PO BID warfarin 5 mg tablet 5 mg PO DAILY Qty: 90 3RF Protocol: Dose Management Condition: Thursday Dose/Route: 2.5 mg Instruction: 0.5 x 5 mg tablets Condition: Thursday Dose/Route: 5 mg Instruction: 1 x 5 mg tablet Condition: Thursday Dose/Route: 2.5 mg Instruction: 0.5 x 5 mg tablets Condition: Thursday Dose/Route: 2.5 mg Instruction: 0.5 x 5 mg tablets Condition: Dose/Route: 5 mg Instruction: 1 x 5 mg tablet Condition: Thursday Dose/Route: 2.5 mg Instruction: 0.5 x 5 mg tablets Condition: Thursday Dose/Route: 2.5 mg Instruction: 0.5 x 5 mg tablets Protocol Text: Adjustment Start Date: Thursday08/24/24 INR Value: 2.8 INR Date: 08/24/24 Recheck Date: 09/23/24 acetaminophen 500 mg Tablet 1,000 mg PO PRN PRN Discharge Instructions Additional Instructions: blood work and EKG reassuring tonight INR is slightly elevated at 3.5 (coumadin level). please hold dose in the morning and keep your follow up appointment with your PCP to make further adjustments Discharge Data Discharge Date/Time-TO BE ENTERED AT DEPARTURE: 08/23/24 22:35 HPI General Date/Time Provider Initiated Documentation: 08/23/24 20:49. Limitations to Documentation: no limitations. Information obtained by: patient. HPI Narrative: 44-year-old gentleman past medical history of aortic valve replacement, chronic anticoagulation presents for evaluation of not feeling well. He reports that it was last few hours he just does not feel great. He denies any chest pain or shortness of breath. He has not had dizziness or syncopal episodes. He reports that prior to the pandemic was experiencing shortness of breath. He reports compliance on his medications. He denies any fever chills or recent sick exposures. He states that he has a lot of stressors going on at home and she wants to make sure everything. Related Data Home Medications ?Medication ?Instructions ?Recorded ?Confirmed acetaminophen 500 mg tablet 1,000 mg PO PRN PRN 11/27/19 08/24/24 aspirin 81 mg chewable tablet 81 mg PO DAILY 04/07/24 08/24/24 empagliflozin 10 mg tablet 10 mg PO DAILY 04/07/24 08/24/24 (Jardiance) furosemide 40 mg tablet 40 mg PO BID 04/07/24 08/24/24 metoprolol succinate 100 mg 150 mg PO DAILY 04/07/24 08/24/24 tablet,extended release 24 hr potassium chloride 20 mEq 20 meq PO DAILY 04/07/24 08/24/24 tablet,extended release spironolactone 25 mg tablet 12.5 mg PO DAILY 04/07/24 08/24/24 warfarin 5 mg tablet 5 mg PO DAILY #90 tabs 08/17/24 08/24/24 Previous Rx's ?Medication ?Instructions ?Recorded warfarin 5 mg tablet 5 mg PO DAILY #90 tabs 08/17/24 Allergies Allergy/AdvReac Type Severity Reaction Status Date / Time clindamycin Allergy Severe Anaphylaxis Unverified 08/23/24 20:47 General Stated Complaint: GenMedical TREVER: 3 Exam Narrative Exam Narrative: Review of Systems: All systems reviewed & are unremarkable except as noted in HPI and below Well-developed, no acute distress NCAT PERRL, normal conjunctiva RRR, + mechanical valve click noted Unlabored respiratory effort, clear bilaterally no crackles Nondistended abdomen , soft nontender Extremities w/o deformity, no cyanosis, no edema no focal neurologic deficits Course Vital Signs Vital signs: Vital Signs Temperature 36.9 C 08/23/24 20:44 Pulse 70 08/23/24 20:44 Respiratory Rate 16 08/23/24 20:44 Blood Pressure 151/87 H 08/23/24 20:44 Pulse Oximetry 96 08/23/24 20:44 Temperature 36.9 C 08/23/24 20:44 Pulse 67 08/23/24 21:10 Pulse 67 08/23/24 21:10 Respiratory Rate 24 08/23/24 21:10 Respiratory Effort Normal, Non-Labored 08/23/24 20:50 Respiratory Depth Normal 08/23/24 20:50 Respiratory Pattern Normal 08/23/24 20:50 Blood Pressure 132/77 08/23/24 21:01 Blood Pressure Mean 94 08/23/24 21:01 Pulse Oximetry 99 08/23/24 21:10 Pain Level 0 08/23/24 20:44 Lab/Test Results Lab/Test Results: Laboratory Tests Range/Units 08/23/24 20:55 WBC (4.4-10.8) 10^3/uL 10.01 RBC (4.36-5.78) 10^6/uL 4.84 Hgb (13.5-17.5) g/dL 15.2 Hct (40.0-50.0) % 44.1 MCV (80-95) fL 91 MCH (27.0-33.0) pg 31.4 MCHC (32.0-36.0) % 34.5 RDW (11.8-14.1) % 13.4 Plt Count (130-400) 10^3/uL 245 MPV (8.0-11.0) fL 10.6 Immature Gran % % 0.2 Neutrophils % % 55.2 Lymphocytes % % 28.7 Monocytes % % 9.5 Eosinophils % % 4.9 Basophils % % 1.5 Nucleated RBC % (0.0-0.3) % 0.0 Absolute Neutrophils (1.2-6.7) 10^3/uL 5.53 Absolute Lymphocytes (1.2-3.4) 10^3/uL 2.87 Absolute Monocytes (0.1-0.8) 10^3/uL 0.95 H Absolute Eosinophils (0.0-0.7) 10^3/uL 0.49 Absolute Basophils (0.0-0.2) 10^3/uL 0.15 Medical Decision Making emergent evaluation of not feeling well. Patient does not have any specific symptoms and has a benign and reassuring physical examination. EKG was obtained and independently interpreted: Sinus 61 normal axis , nonspecific ST changes, no acute findings. Hemodynamically stable and does not have any signs or symptoms concerning for CHF or valvular insufficiency. Will check labs and monitor. Lab work reviewed, no leukocytosis or anemia. INR slightly above therapeutic range at 3.5 and I have recommended that he hold his morning dose. He does have an appointment scheduled with his PCP tomorrow for Coumadin recheck and adjustment. Further adjustment of Coumadin dosing schedule can be made by PCP. Remainder of lab work is unremarkable. Troponin is not elevated and I do not suspect a cardiac etiology given his symptoms. The patient was asymptomatic without intervention. Recommend close follow-up as needed and return to the emergency department if he develops any specific symptoms or concern PFSH All Active Problems Anxiety (Chronic) Elevated INR (Acute) Feeling unwell (Acute) Anticoagulated on warfarin (Acute) ADHD (Acute) COVID-19 (Acute) Cellulitis of great toe, right (Acute) Smoker (Acute) Jan 2025 quit. Medical History (Updated 08/24/24 @ 09:13 by Rene Higgins NP) History of bicuspid aortic valve Surgical History (Updated 04/07/24 @ 12:50 by Piper Capone RN) S/P AVR (aortic valve replacement) (~02/29/24) bicuspid AVR, [facility] [place] Family History (Updated 04/07/24 @ 12:57 by Piper Capone RN) Mother Asthma Depression Hypertension Father Hyperlipidemia Sister Depression Brother Depression Maternal Grandmother Alcohol use disorder Cancer Depression Heart disease Hypertension Maternal Grandfather Alcohol use disorder Depression Hypertension Paternal Grandmother Depression Paternal Grandfather Alcohol use disorder Dementia Depression Social History (Updated 04/11/24 @ 09:52 by Pat Grant) Smoking/Tobacco Use Status: Former Tobacco Use tobacco type: cigarettes Quit Date: 02/23/24 Tobacco: How many years used: 20 Quit status: has quit before Second Hand Exposure: Yes Smoking risk assessment performed?: Yes Alcohol Intake: current Alcohol Intake frequency: holidays/special occasions only Drug use: Never Substance use type: does not use Counseling given: No Adopted: No Household members: spouse and children Housing: house Number of Children: 4 number of grandchildren: 0 Communication Needs: None Do you need help understanding health information?: Rarely 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 Sexually active: Yes Do you think of yourself as: straight/heterosexual Current gender identity: male What is your relationship status?: How often do you talk on the phone with friends or family?: three or more times per week How often do you get together with friends or relatives?: twice per week How often do you attend tenriism or moravian services?: decline to answer Do you belong to any clubs or organized social groups?: no Panel score (0-1 are the most socially isolated patients): 2 What type of physical activity do you participate in: walking Duration: 30-45 minutes/day Frequency: daily Libertad/Yazdanism: Non catholic Special libertad needs: No Seatbelt use: always Helmet use: Yes Helmet use: always Drive intox or ride w/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
[2024-08-23 22:13] LABS: INR 3.5 (0.9-1.1); PTT Activated 48.5 sec (20.6-30.2); Prothrombin Time 32.2 sec (9.1-11.1)
[2024-08-23 22:18] LABS: ALT 42 U/L (16-63); AST 30 U/L (15-37); Albumin 3.6 g/dL (3.4-5.0); Alkaline Phosphatase 132 U/L (46-116); BUN 11 mg/dL (7-18); Bilirubin, Total 0.3 mg/dL (0.2-1.0); Calcium 8.4 mg/dL (8.5-10.1); Chloride 105 mmol/L (98-107); Estimated GFR 96.37 (mL/min/1.73m2); Glucose 108 mg/dL (74-106); Lipase 36 U/L (<78); Magnesium 1.9 mg/dL (1.8-2.4); NT-proBNP 105 pg/mL (<300); Potassium 3.6 mmol/L (3.5-5.1); Sodium 140 mmol/L (136-145); Total Protein 6.9 g/dL (6.4-8.2); Troponin I 6 ng/L (<or=76)
== END 2024-08-23 22:35 | disposition home or self-care (01) ==
PROVIDERS: Emergency Provider Emergency Medicine; PCP Nurse Practitioner Family
DX: R53.81 Other malaise (principal); R79.89 Other specified abnormal findings of blood chemistry; Z95.2 Presence of prosthetic heart valve; Z79.82 Long term (current) use of aspirin; Z79.01 Long term (current) use of anticoagulants; Z79.899 Other long term (current) drug therapy; Z87.891 Personal history of nicotine dependence
CPT/HCPCS: 36415; 80053; 83690; 93005; 99284; 83735; 83880; 84484; 85025; 85610; 85730; 93010

== ENCOUNTER 2024-12-27 13:19 | Emergency (ER) | payer OTHER, MEDICAID, SELFPAY ==
[2024-12-27 13:21] VITALS: BP 131/84; PULSE 75; RESP 18; TEMP 36.4; O2SAT 95
--- NOTE | 2024-12-27 13:59 | W.ED.GENAD ---
Discharge Plan Disposition Patient Disposition: Home Condition: Stable Discharge Details Clinical Impression: Strain of left quadriceps Primary Care Provider: Rene Higgins ED Provider: Carmine Sylvester Home Meds and New Rx's Prescriptions: Continued sertraline 50 mg tablet 50 mg PO DAILY Qty: 90 3RF potassium chloride 20 mEq tablet extended release 20 meq PO DAILY Jardiance 10 mg tablet 10 mg PO DAILY spironolactone 25 mg tablet 12.5 mg PO DAILY aspirin 81 mg tablet,chewable 81 mg PO DAILY metoprolol succinate 100 mg tablet extended release 24 hr 150 mg PO DAILY furosemide 40 mg tablet 40 mg PO BID warfarin 5 mg tablet 5 mg PO DAILY Qty: 90 3RF Protocol: Dose Management Condition: Thursday Dose/Route: 2.5 mg Instruction: 0.5 x 5 mg tablets Condition: Thursday Dose/Route: 2.5 mg Instruction: 0.5 x 5 mg tablets Condition: Thursday Dose/Route: 2.5 mg Instruction: 0.5 x 5 mg tablets Condition: Thursday Dose/Route: 2.5 mg Instruction: 0.5 x 5 mg tablets Condition: Dose/Route: 5 mg Instruction: 1 x 5 mg tablet Condition: Thursday Dose/Route: 2.5 mg Instruction: 0.5 x 5 mg tablets Condition: Thursday Dose/Route: 2.5 mg Instruction: 0.5 x 5 mg tablets Protocol Text: Adjustment Start Date: Thursday12/27/24 INR Value: 2.2 INR Date: 12/27/24 Recheck Date: 01/26/25 lisdexamfetamine [Vyvanse] 40 mg capsule 40 mg PO QAM MDD 40 mg Qty: 28 0RF acetaminophen 500 mg Tablet 1,000 mg PO PRN PRN Discharge Instructions Instructions: Leg Muscle Strain ED Additional Instructions: You were seen in the emergency department for the focal pain in your left quadriceps muscle, your D-dimer is negative there is no evidence of blood clot based on your physical exam either. Please apply heat to the area and try to massage out this possible knot in your muscle, if this is not improving please see orthopedics as they may want to perform an MRI of the area. Take regular doses of Tylenol and perform gentle stretching Referrals: [facility] [Provider Group] Rene Higgins NP [Primary Care Provider, Medicine] Discharge Data Discharge Date/Time-TO BE ENTERED AT DEPARTURE: 12/27/24 15:09 HPI General Date/Time Provider Initiated Documentation: 12/27/24 13:29. HPI Narrative: 44 year-old male presents to ED today by POV/ambulating with a chief complaint of L inner thigh pain with onset for the past 1 month, worsening and traveling up toward the femoral area of his L thigh after doing some manual work today. Quality described as burning searing pain, no radiation to gross unilateral leg swelling, varicosities, focal nodular swellings in calf, redness/pallor distally, inability to ambulate. Severity is described as severe. Palliating factors include nothing specific. Provoking factors include performing SLR. Events leading up to the incident/Associated Symptoms: Patient is R-side dominant, and works very physical jobs 12 hours daily. Patient is anticoagulated on warfarin. Related Data Home Medications Medication Instructions Recorded Confirmed acetaminophen 500 mg tablet 1,000 mg PO PRN PRN 11/27/19 12/27/24 aspirin 81 mg chewable tablet 81 mg PO DAILY 04/07/24 12/27/24 empagliflozin 10 mg tablet 10 mg PO DAILY 04/07/24 12/27/24 (Jardiance) furosemide 40 mg tablet 40 mg PO BID 04/07/24 12/27/24 metoprolol succinate 100 mg 150 mg PO DAILY 04/07/24 12/27/24 tablet,extended release 24 hr potassium chloride 20 mEq 20 meq PO DAILY 04/07/24 12/27/24 tablet,extended release spironolactone 25 mg tablet 12.5 mg PO DAILY 04/07/24 12/27/24 warfarin 5 mg tablet 5 mg PO DAILY #90 tabs 08/17/24 12/27/24 sertraline 50 mg tablet 50 mg PO DAILY #90 tabs 12/05/24 12/27/24 lisdexamfetamine 40 mg capsule 40 mg PO QAM #28 caps 12/26/24 12/27/24 (Vyvanse) Previous Rx's Medication Instructions Recorded warfarin 5 mg tablet 5 mg PO DAILY #90 tabs 08/17/24 sertraline 50 mg tablet 50 mg PO DAILY #90 tabs 12/05/24 lisdexamfetamine 40 mg capsule 40 mg PO QAM #28 caps 12/26/24 (Vyvanse) Allergies Allergy/AdvReac Type Severity Reaction Status Date / Time clindamycin Allergy Severe Anaphylaxis Unverified 12/27/24 13:30 General Stated Complaint: Vascular TREVER: 3 Review of Systems All systems reviewed & are unremarkable except as noted in HPI and below Exam Narrative Exam Narrative: GENERAL APPEARANCE: Well-nourished, non-toxic, awake and alert, atraumatic, no acute distress. SKIN: Warm, pink, dry, intact, without rashes/lesions/ulcerations. HEAD: Normocephalic, atraumatic, normal hair distribution for gender/age. EYES: Normal conjunctiva, no exudates on lids/lashes. ENT: Nares patent, no circumoral cyanosis, no facial swelling NECK: Supple, trachea midline, painless cervical ROM. LUNGS/CHEST: Non-labored respirations, normal A/P diameter, symmetrical expansion, no chest wall deformity HEART (CV/PV): No peripheral edema, no JVD. ABDOMEN: Soft, non-distended, no guarding. MSK: Normal ROM, no swelling/deformity to bilateral UEs or LEs, moving all extremities without weakness - focal nodular palpable tension in the medial mid aspect of the left quadriceps muscle, Homans negative, no unilateral calf swelling or skin changes to the calf, no medial thigh tenderness near the knee in the deep vein system, no cyanosis, spine midline without tenderness, normal curvature. NEURO: Mental Status AAOx4 - alert to person, place, time, events No facial droop, no forehead involvement. Motor: No focal weakness - strength 5/5 in bilateral UEs and LEs, proximal and distal, symmetric. Sensory: sensation intact to light touch globally. Gait normal: patient ambulated without ataxia into ED room. PSYCH: euthymic, cooperative, pleasant, appropriate speech Course Vital Signs Vital signs: Vital Signs Temperature 36.4 C L 12/27/24 13:21 Pulse 75 12/27/24 13:21 Respiratory Rate 18 12/27/24 13:21 Blood Pressure 131/84 12/27/24 13:21 Pulse Oximetry 95 12/27/24 13:21 Temperature 36.4 C L 12/27/24 13:21 Temperature Source Oral 12/27/24 13:21 Pulse 75 12/27/24 13:21 Respiratory Rate 18 12/27/24 13:21 Blood Pressure 131/84 12/27/24 13:21 Blood Pressure Position Sitting 12/27/24 13:21 Pulse Oximetry 95 12/27/24 13:21 Oxygen Delivery Method Room Air 12/27/24 13:21 Oxygen Flow Rate 0 12/27/24 13:21 Pain Level 0 12/27/24 13:21 Comment pain with movements of his leg 12/27/24 13:21 Medical Decision Making This dictation utilizes [id number] dictation software and may contain unedited grammatical errors. 44 year-old male presents to ED today by POV/ambulating with a chief complaint of L inner thigh pain with onset for the past 1 month, worsening and traveling up toward the femoral area of his L thigh after doing some manual work today. Quality described as burning searing pain, no radiation to gross unilateral leg swelling, varicosities, focal nodular swellings in calf, redness/pallor distally, inability to ambulate. Severity is described as severe. Palliating factors include nothing specific. Provoking factors include performing SLR. Events leading up to the incident/Associated Symptoms: Patient is R-side dominant, and works very physical jobs 12 hours daily. Patients' medical history: History of valvular prosthesis, heart failure. 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 Pertinent exam findings / vital signs include focal nodular palpable tension in the medial mid aspect of the left quadriceps muscle, Homans negative, no unilateral calf swelling or skin changes to the calf, no medial thigh tenderness near the knee in the deep vein system. Differential / pathologies of concern include muscle strain, DVT. Diagnostic studies of: -D-dimer, PT/PTT - INR very close to therapeutic, D-dimer negative. Interventions of: -Recommend APAP/NSAIDs, heat & massage. ED Course/Assessment/Plan: 44-year-old male has a painful knot in his left quadriceps muscle, D-dimer is negative and he does not present with a physical exam consistent with DVT, counseled on heat massage to the area as it is worse with active muscle range of motion and that if it does not improve he should see orthopedics. Recommend therapeutic dosing of Tylenol and applying heat and massage to the area. Findings not consistent with DVT, neurovascular compromise, fracture or trauma. Disposition of Strain of Left Quadriceps. Patient verbalized understanding of the plan and return to ED criteria and engaged in shared decision making. Medical Records Medical records reviewed: Yes I reviewed the patient's medical records. Lab Data Lab results reviewed: Yes I reviewed the patient's lab results. Labs: Laboratory Tests Range/Units 12/27/24 14:02 PT (9.1-11.1) sec 20.8 H INR (0.9-1.1) 2.2 H D-Dimer (<500) ng/mlFEU 144 PFSH All Active Problems Strain of left quadriceps (Acute) Lumbar back pain (Acute) Anxiety (Chronic) Anticoagulated on warfarin (Acute) ADHD (Acute) COVID-19 (Acute) Cellulitis of great toe, right (Acute) Smoker (Acute) Jan 2025 quit. Medical History (Updated 12/27/24 @ 14:56 by KLAUDIA Carr) History of bicuspid aortic valve Surgical History (Updated 04/07/24 @ 12:50 by Piper Capone RN) S/P AVR (aortic valve replacement) (~02/29/24) bicuspid AVR, [facility] [place] Family History (Updated 04/07/24 @ 12:57 by Piper Capone RN) Mother Asthma Depression Hypertension Father Hyperlipidemia Sister Depression Brother Depression Maternal Grandmother Alcohol use disorder Cancer Depression Heart disease Hypertension Maternal Grandfather Alcohol use disorder Depression Hypertension Paternal Grandmother Depression Paternal Grandfather Alcohol use disorder Dementia Depression Social History (Updated 04/11/24 @ 09:52 by Pat Grant) Smoking/Tobacco Use Status: Former Tobacco Use tobacco type: cigarettes Quit Date: 02/23/24 Tobacco: How many years used: 20 Quit status: has quit before Second Hand Exposure: Yes Smoking risk assessment performed?: Yes Alcohol Intake: current Alcohol Intake frequency: holidays/special occasions only Drug use: Never Substance use type: does not use Counseling given: No Adopted: No Household members: spouse and children Housing: house Number of Children: 4 number of grandchildren: 0 Communication Needs: None Do you need help understanding health information?: Rarely 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 Sexually active: Yes Do you think of yourself as: straight/heterosexual Current gender identity: male What is your relationship status?: How often do you talk on the phone with friends or family?: three or more times per week How often do you get together with friends or relatives?: twice per week How often do you attend presybeterian or jewish services?: decline to answer Do you belong to any clubs or organized social groups?: no Panel score (0-1 are the most socially isolated patients): 2 What type of physical activity do you participate in: walking Duration: 30-45 minutes/day Frequency: daily Libertad/Yazidi: Non nondenominational Special libertad needs: No Seatbelt use: always Helmet use: Yes Helmet use: always Drive intox or ride w/intox buggy driver: No Firearms in home: No Do you feel safe at home: Yes Do you feel safe in your relationship?: Yes Victim of physical abuse: No Victim of emotional abuse: No Victim of sexual abuse: No Would you like helpful sources: No
[2024-12-27 14:24] LABS: INR 2.2 (0.9-1.1); Prothrombin Time 20.8 sec (9.1-11.1)
[2024-12-27 14:38] LABS: D-Dimer 144 ng/mlFEU (<500)
== END 2024-12-27 15:09 | disposition home or self-care (01) ==
PROVIDERS: Emergency Provider Physician Assistant; PCP Nurse Practitioner Family
DX: S76.112A Strain of left quadriceps muscle, fascia and tendon, initial encounter (principal); X58.XXXA Exposure to other specified factors, initial encounter
CPT/HCPCS: 99283 ×2; 85379; 85610